=== PATIENT | male | born 1985 | race Two or more races ===

== ENCOUNTER 2018-10-10 01:20 | Emergency (ER) | payer BC ==
[~2018-10-10] VITALS: Ht 177.8 cm; Wt 72.6 kg
--- NOTE | 2018-10-10 02:10 | NUR ---
to bed syncope witnessed by s/o, R eyebrow laceration, c/o jaw pain. pt aaox4 no acute distress noted respo even and unlabored. pending er md saavedra.
[2018-10-10] MEDS ORDERED: LIDOCAINE 1%-EPI 1:100,000 20 ML VIAL ONE (02:25)
--- NOTE | 2018-10-10 02:25 | NUR ---
pt transported to radiology for ct's.
--- NOTE | 2018-10-10 03:45 | NUR ---
ct results received. er md jay aware with order to call dr. craig for consult.
--- NOTE | 2018-10-10 03:55 | NUR ---
Called Dr. Escobar for Dr to Dr jimenez with Dr. Randolph. Dr Escobar to be paged.
[2018-10-10] MEDS ORDERED: TDAP [DIPH/PERTUSSIS/TET] 0.5 ML VIAL IM ONE ×2 (05:00→05:10)
[2018-10-10] MEDS ORDERED: HYDROCODONE/APAP 5/325MG 1 EACH TABLET PO ONE (05:00)
[2018-10-10] MEDS ORDERED: HYDROCODONE/APAP 5/325MG 1 EACH TABLET ONE (05:09)
--- NOTE | 2018-10-10 05:17 | NUR ---
Patient discharged to home in stable condition. Written and verbal after care instructions given. Patient verbalizes understanding of instruction. pt aaox4 no acute distress noted, resp even and unlabored. pt s/o at [facility] to take pt home.
[2018-10-10 05:19] VITALS: BP 137/75
== END 2018-10-10 05:46 | disposition home or self-care (01) ==
LOC: ER 01:25
DX: S02.642A Fracture of ramus of left mandible, initial encounter for closed fracture (principal); S01.111A Laceration without foreign body of right eyelid and periocular area, initial encounter; W18.39XA Other fall on same level, initial encounter; Y93.89 Activity, other specified; Y92.89 Other specified places as the place of occurrence of the external cause; Y99.8 Other external cause status
CPT/HCPCS: 12013; 70450; 70486; 90471; 90715; 99284; J3490